=== PATIENT | female | born 1995 | race Caucasian/White ===

== ENCOUNTER 2018-02-27 00:10 | Emergency (ER) | payer OTHER, SELFPAY ==
[2018-02-27 00:48] LABS: #Eosinphils 0.1 thou/uL (0.0-0.7); #Lymphocytes 1.3 thou/uL (1.20-3.40); #Monocytes 0.5 thou/uL (0.11-0.59); #Neutrophils 13.7 thou/uL (1.40-6.50); %Eosinophils 0.3 % (0.0-10.0); %Lymphocytes 8.3 % (21.0-51.0); %Monocytes 3.3 % (0.0-10.0); Hemoglobin 13.5 g/dL (12.0-16.0); Mean Corpuscular HGB CONC 32.6 g/dL (32.0-36.0); Mean Corpuscular Hemoglobin 28.1 pg (27.0-31.0); Mean Corpuscular Volume 86.4 fL (78.0-98.0); Mean Platelet Volume 8.3 fL (7.4-10.4); Platelet Count 263 thou/uL (130-400); RBC Distribution Width 12.1 % (11.5-14.5); Red Blood Cell (RBC) Count 4.78 mill/uL (4.20-5.40); White Blood Cell (WBC) Count 15.6 thou/uL (4.8-10.8)
[2018-02-27 00:56] LABS: ALT (SGPT) 12 U/L (8-55); AST (SGOT) 16 U/L (5-34); Albumin 4.5 g/dL (3.5-5.0); Alkaline Phosphatase 98 U/L (40-150); Anion Gap 15 mmol/L (10-20); BUN (Urea Nitrogen) 16 mg/dL (7.0-18.7); Bilirubin, Total 0.5 mg/dL (0.2-1.2); Calc. Creatinine Clearance 0 mL/min (70-130); Calcium 9.7 mg/dL (7.8-10.44); Carbon Dioxide 22 mmol/L (22-29); Chloride 105 mmol/L (98-107); Estimated GFR-MDRD 89; Globulin 3.9 g/dL (2.4-3.5); Glucose 122 mg/dL (70-105); Lipase 15 U/L (8-78); Protein, Total 8.4 g/dL (6.0-8.3); Sodium 138 mmol/L (136-145)
[2018-02-27 02:26] LABS: Bilirubin Negative (Negative); Blood, Urine Negative (Negative); Clarity CLEAR (Clear); Glucose, Urine (Dipstick) Negative (Negative); Leukocyte Trace (Negative); Nitrite Negative (Negative); Protein, Urine (Dipstick) Negative (Neg-Trace); Specific Gravity, Urine 1.024 (1.002-1.036); Urobilinogen 0.2 mg/dL (0.2-1.0); pH, Urine 6.5 (5.0-9.0)
[2018-02-27 02:27] LABS: Pregnancy Test - Urine (BHCG) Negative (Negative); Pregu Control Background? CLEAR/WHITE (CLR/WHITE); Pregu Control Bar Appear? YES (CONTROL BAR); Specific Gravity 1.024 (1.002-1.036)
[2018-02-27 02:29] LABS: Bacteria/HPF None Seen HPF (None Seen); Hyaline Casts/LPF 0-3 HYALINE CAST LPF (0-3 Hyaline); Pathc Cast-AUWi Flag 0.29 (0-2.49); Squamous Epithelial 0-3 HPF (0-3); WBC/HPF 0-3 HPF (0-3)
[2018-02-27] MEDS ORDERED: Promethazine 25 MG TAB ONE (04:08)
[2018-02-27] MEDS ORDERED: Mag-Al 1200 mg/1200 mg/30 ML UDCUP ONE (04:09)
[2018-02-27] MEDS ORDERED: Lidocaine Viscous Sol 2% 15 ml UD Cup ONE (04:09)
[2018-02-27] MEDS ORDERED: Ondansetron HCl/PF 4 MG/2 ML Vial ONE (05:10)
== END 2018-02-27 08:40 | disposition home or self-care (01) ==
LOC: ERS 00:10
DX: K52.9 Noninfective gastroenteritis and colitis, unspecified (principal); F41.9 Anxiety disorder, unspecified; F32.9 Major depressive disorder, single episode, unspecified
CPT/HCPCS: 36415; 80053; 81003; 81015; 81025; 83690; 85025; 96361; 96374; J2405

== ENCOUNTER 2018-12-30 06:32 | Inpatient (IN) | payer OTHER ==
[~2018-12-30 06:32] MED LIST: Bupivacaine 0.25% HCL 30 ML VIAL ONE
[2018-12-30] MEDS ORDERED: Ibuprofen 800 MG TAB PO PRN (07:14)
[2018-12-30] MEDS ORDERED: Promethazine HCl 25 MG/ML VIAL IM PRN ×2 (07:14→08:47)
[2018-12-30] MEDS ORDERED: Lidocaine 1% (PF) 30 ML VIAL SC PRN (07:14)
[2018-12-30] MEDS ORDERED: Acetaminophen/Codeine 30-300mg Tablet PO PRN ×2 (07:14)
[2018-12-30] MEDS ORDERED: NS / Oxytocin 40 units/1000ml 1,000 ML IV PRN (07:14)
[2018-12-30] MEDS ORDERED: Ondansetron PF 4 MG/2 ML Vial IVP PRN ×2 (07:14→08:47)
[2018-12-30] MEDS ORDERED: Butorphanol Tartrate 1 MG/ML VIAL SLOW IVP PRN (07:14)
[2018-12-30] MEDS ORDERED: Lactated Ringer's 1,000 ML IV SCH ×2 (07:15)
[2018-12-30 07:27] VITALS: BMI 37.8
[2018-12-30 07:33] LABS: Hemoglobin 10.6 g/dL (12.0-16.0); Mean Corpuscular HGB CONC 33.9 g/dL (32.0-36.0); Mean Corpuscular Hemoglobin 26.4 pg (27.0-31.0); Mean Corpuscular Volume 77.9 fL (78.0-98.0); Mean Platelet Volume 9.2 fL (7.4-10.4); Platelet Count 278 thou/uL (130-400); RBC Distribution Width 13.5 % (11.5-14.5); Red Blood Cell (RBC) Count 4.02 mill/uL (4.20-5.40); White Blood Cell (WBC) Count 10.8 thou/uL (4.8-10.8)
[2018-12-30] MEDS ORDERED: Fentanyl 4 mcg/Bup 0.1% Cadd 100 ML ONE (07:43)
[2018-12-30 08:06] LABS: HBSAg Index 0.28 S/CO (0-0.99); Hep B Surf Ag Non-Reactive S/CO (NonReactive); Syphilis Antibody Nonreactive (Nonreactive); Syphilis Antibody Index 0.07 S/CO (<1.00 Non-Reactive)
[2018-12-30] MEDS ORDERED: Lactated Ringer's 500 ML IV PRN (08:47)
[2018-12-30] MEDS ORDERED: Naloxone HCl 0.4 mg/ml Vial IVP PRN ×2 (08:47)
[2018-12-30] MEDS ORDERED: diphenhydrAMINE 50 MG/ML VIAL IVP PRN (08:47)
[2018-12-30] MEDS ORDERED: ePHEDrine/0.9% NaCl/PF SYRINGE 50 mg/10 ml SLOW IVP PRN (08:47)
[2018-12-30] MEDS ORDERED: Acetaminophen 325 MG TAB PO PRN (08:47)
[2018-12-30] MEDS ORDERED: Fentanyl 4 mcg/Bupivacaine 0.1% Cassette 100 ML EPIDURAL SCH (09:00)
[2018-12-30] MEDS ORDERED: Communication Order-Pharmacy FS SCH (09:00)
[2018-12-30] MEDS ORDERED: NS w/ Oxytocin 10 units 500 ML ONE (09:50)
[2018-12-30] MEDS ORDERED: NS w/ Oxytocin 10 units 500 ML IV SCH (10:00)
[2018-12-30] MEDS ORDERED: Bisacodyl 10 MG SUPP PR PRN (12:56)
[2018-12-30] MEDS ORDERED: Adacel (T-DAP) 0.5 ML SYRINGE IM ONE (12:56)
[2018-12-30] MEDS ORDERED: Lanolin Ointment 7 GM TUBE TOP PRN (12:56)
[2018-12-30] MEDS ORDERED: NS / Oxytocin 40 units/1000ml 1,000 ML IV SCH (12:56)
[2018-12-30] MEDS ORDERED: Milk Of Magnesia 30 ML UDCUP PO PRN (12:56)
[2018-12-30] MEDS ORDERED: diphenhydrAMINE 25 MG CAP PO PRN (12:56)
[2018-12-30] MEDS: Ibuprofen 800 MG TAB PO SCH ×2 (13:54→21:15)
[2018-12-30] MEDS: HYDROcodone/Acetaminophen 5/325 mg Tablet PO PRN ×2 (15:10→19:40)
[2018-12-30] MEDS: Ferrous Sulfate 325 MG TAB PO SCH (19:20)
[2018-12-30] MEDS: Docusate Calcium (SURFAK) 240 MG CAP PO SCH (21:15)
[2018-12-31] MEDS: HYDROcodone/Acetaminophen 5/325 mg Tablet PO PRN ×3 (02:47→12:24)
[2018-12-31] MEDS: Ibuprofen 800 MG TAB PO SCH ×2 (05:04→14:09)
[2018-12-31] MEDS: Ferrous Sulfate 325 MG TAB PO SCH (07:50)
[2018-12-31] MEDS: Docusate Calcium (SURFAK) 240 MG CAP PO SCH (08:01)
[2018-12-31 11:38] VITALS: BP 119/75; TEMP 97.9
--- NOTE | 2018-12-31 12:09 | PDOC.PP ---
Post Progress Note Post Day #: 1 Subjective: No complaints, working on , getting easier. PO intake tolerated: yes Flatus: yes Ambulation: yes Vital Signs (12 hours) Temp Pulse Resp BP BP Pulse Ox 12/31/18 11:38 97.9 F 86 18 119/75 97 12/31/18 07:50 99 12/31/18 07:19 97.6 F 88 18 120/70 99 12/31/18 05:00 97.7 F 77 16 110/78 Weight Weight 194 lb - Physical Examination General: NAD Cardiovascular: no m/r/g, RRR Respiratory: clear to auscultation bilaterally, non-labored breathing Abdominal: + bowel sounds, lochia, no distention, appropriately TTP Result Diagrams: 12/30/18 07:17 Additional Labs: Post Labs Blood Type O POSITIVE 12/30/18 07:17 Hep Bs Antigen Non-Reactive S/CO (NonReactive) 12/30/18 07:17 (1) Vaginal delivery Code(s): O80 - ENCOUNTER FOR FULL-TERM UNCOMPLICATED DELIVERY Status: Acute - Assessment/Plan Routine PP care D/C later today F/U in 6 weeks
== END 2018-12-31 17:05 | disposition home or self-care (01) | DRG 807 ==
LOC: L&D/OP 06:32 → L&D 07:29 → 3SW 14:42
PROVIDERS: ADMIT Family Medicine; ATTEND Family Medicine
PROC: 10907ZC Drainage of Amniotic Fluid, Therapeutic from Products of Conception, Via Natural or Artificial Opening (ICD-10-PCS; principal; 2018-12-30)
PROC: 10E0XZZ Delivery of Products of Conception, External Approach (ICD-10-PCS; 2018-12-30)
DX: O71.89 Other specified obstetric trauma (principal); Z37.0 Single live birth; Z3A.38 38 weeks gestation of pregnancy
CPT/HCPCS: 36415; 51702; 76815; 85027; 86780; 86850; 86900; 86901; 87340; 99285; J2590